=== PATIENT | female | born 1980 | race Caucasian/White ===

== ENCOUNTER 2020-03-21 07:57 | Emergency (ER) | payer OTHER ==
[~2020-03-21] VITALS: Ht 162.6 cm; Wt 90.7 kg
[~2020-03-21 07:57] MED LIST: Adipex-P37.5 MG PO; BUTASPCAFT; CELE200 PO; CEPH500 PO; CHLO500; CHLO500 PO; HYDR1TAB94 PO; LISINOPRIL/HCTZ PO; MELO7.5; NAPR220 PO; NAPR500 PO; Nexium40 MG PO; Omeprazole20 M1; Omeprazole20 M1 PO; TRAM50 PO
[2020-03-21] MEDS ORDERED: HYDR1TAB94 PO (09:39)
[2020-03-21] MEDS ORDERED: AMOCLA875 PO (09:39)
== END 2020-03-21 10:00 | disposition home or self-care (01) ==
LOC: ER 07:57
DX: S61.452A Open bite of left hand, initial encounter (principal); K21.9 Gastro-esophageal reflux disease without esophagitis; Z79.899 Other long term (current) drug therapy; Z87.891 Personal history of nicotine dependence; W54.0XXA Bitten by dog, initial encounter
CPT/HCPCS: 73120; 99283-25; L3917